=== PATIENT | male | born 1975 | race Caucasian/White ===

== ENCOUNTER → 2022-09-20 13:59 | Outpatient (BNVA) | payer BC, SELFPAY | PROVIDERS: PCP Internal Medicine; Referring Provider Internal Medicine; Visit Provider Physician Assistant Surgical | DX: E66.9 Obesity, unspecified (principal) ==

== ENCOUNTER → 2022-10-17 13:43 | Outpatient (BNVA) | payer BC, SELFPAY | PROVIDERS: PCP Internal Medicine; Visit Provider Dietitian, Registered | DX: E66.9 Obesity, unspecified (principal); Z68.35 Body mass index [BMI] 35.0-35.9, adult | CPT/HCPCS: 97802 ==

== ENCOUNTER 2023-04-10 11:06 | Outpatient (AMB) | payer BC, SELFPAY ==
--- NOTE | 2023-04-10 11:16 | MHC.AMNUTRGE ---
Intake VS Expanded 04/10/23 13:14 Height 5 ft 10 in Weight 231 lb BMI 33.1 Body Fat 70.8 Body Fat Percentage 30.5 Muscle Mass 153 Visceral Mass 15 Water Mass 113.6 BMR 2,173 Intake Visit Reasons: (OV) F/U [facility] Allergies No Known Allergies Allergy (Verified 09/20/22 14:28) HPI Nutrition Presentation Details Medical weight loss start date - 09/20/22 New patient weight 262 lb Last weight 248 lb current weight 232# Pts Goal is 220# Returns to the [facility] program after a long break. Pt states was told [facility] program could be as long as he wanted, just have to pay copays .? Reason for consult elevated BMI Diet Assmnt Details Breakfast: 2 whole eggs and 1 egg white, 1/4 avocado, slice of whole wheat bread Lunch usually a protein shake; using Premier shakes or Pure protein. Dinner : Stopped Measuring portions was having 4-6 oz of protein and vegetable. He recognizes it was beneficial to use of food scale and plans to resume now Patient shares he is interested in learning more about a Mediterranean diet. Likes the idea of eating whole foods and only using the shakes when in a pinch Exercise: walks 3 miles daily on the treadmill Had a severe back injury several months ago but he reports with the weight lost in our program on this is no longer an issue Had some lab work done recently. reports his cholesterol has decreased sig and is no longer prediabetic. Pt reports had protein in urine - kidney function tests were normal . He started B12 and vitaminD. has also had several changes in blood pressure medications. States his doc is suspicious of liddles syndrome Dietary counseling reduction Diagnosis Nutrition problem #1 overweight/obesity As related to (etiology) #1 excess energy intake and physical inactivity As evidenced by (sign/symptom) #1 high BMI Monitoring/Goals Nutrition problem monitoring total energy intake, level of knowledge/skill, total PRO intake, total CHO intake, weight and oral fluids Outcome progress progressing Learning/Education Readiness to learn excellent Stages of change action Educational materials provided Yes Most Recent Diabetes Results: No Data to Display PFSH Surgical History (Updated 09/20/22 @ 14:29 by Brandie Trujillo CMA) Hx of colonoscopy Hx of hernia repair Family History (Updated 09/20/22 @ 14:32 by Brandie Trujillo CMA) Mother Hypertension Son Hypertension Daughter Fatty liver Heart problem Social History (Updated 09/20/22 @ 14:29 by Brandie Trujillo CMA) Alcohol intake: current Alcohol intake frequency: holidays/special occasions only Patient Tobacco Use Status: Never used Tobacco Assessment & Plan Assessment & Plan (1) Obesity: Code(s): E66.9 - Obesity, unspecified Patient Instructions: Patient may continue nutrition appointments in our program as long as we are able. We discussed all meals should include protein and lots of vegetable. Overall is doing well. Reviewed purple food list. Patient to follow-up 05/17 at 10:30 with me in office Coding Level of Care Code Nutr Indiv Subseq ([id number]) Diagnoses Obesity E66.9 Time Spent (min) 30
[2023-04-10 13:14] VITALS: BMI 33.1
== END 2023-04-10 12:23 | disposition home or self-care (01) ==
PROVIDERS: PCP Internal Medicine; Visit Provider Dietitian, Registered
DX: E66.9 Obesity, unspecified (principal)

== ENCOUNTER → 2023-04-10 11:06 | Outpatient (BNVA) | payer BC, SELFPAY | PROVIDERS: PCP Internal Medicine; Visit Provider Dietitian, Registered | DX: E66.9 Obesity, unspecified (principal); Z68.33 Body mass index [BMI] 33.0-33.9, adult; Z71.3 Dietary counseling and surveillance | CPT/HCPCS: 97803 ==

== ENCOUNTER → 2023-05-17 10:06 | Outpatient (BNVA) | payer BC, SELFPAY | PROVIDERS: PCP Internal Medicine; Visit Provider Dietitian, Registered | DX: E66.9 Obesity, unspecified (principal); Z68.33 Body mass index [BMI] 33.0-33.9, adult; Z71.3 Dietary counseling and surveillance | CPT/HCPCS: 97803 ==

== ENCOUNTER → 2023-07-17 14:35 | Outpatient (BNVA) | payer BC, SELFPAY | PROVIDERS: PCP Internal Medicine; Visit Provider Dietitian, Registered | DX: E66.09 Other obesity due to excess calories (principal); Z68.32 Body mass index [BMI] 32.0-32.9, adult; Z71.3 Dietary counseling and surveillance | CPT/HCPCS: 97803 ==

== ENCOUNTER 2023-08-14 15:36 | Outpatient (AMB) | payer BC, SELFPAY ==
--- NOTE | 2023-08-14 16:09 | MHC.AMNUTRGE ---
Intake VS Expanded 08/14/23 16:13 Height 5 ft 10 in Weight 222 lb BMI 31.9 Body Fat % 28.1 Body Fat Mass 62.6 Fat Free Mass 160 Visceral Fat Rating 14 Body Water % 51.0 Body Water Mass 113.6 Muscle Mass/Score 152.2 Basal Metabolic Rate/Score 2,146 Intake Visit Reasons: (OV) F/U [facility] Allergies No Known Allergies Allergy (Verified 09/20/22 14:28) HPI Nutrition Presentation Details Medical weight loss start date - 09/20/22 New patient weight 262 lb weight in may# current weight 222# Pts Goal is 220# Reason for consult elevated BMI Diet Assmnt Details pre workout 30g protein shake Breakfast: 2 whole eggs and 1 egg white, 1/4 avocado, sourdough bread, homemade Lunch usually a protein shake; using Premier shakes or Pure protein. Dinner : 4-6 oz of protein and vegetable Protein greens smoothie 120 calories , 20g protein = 120g protein Exercise: 4am weight training 45 minutes 3 exercises per body part and usually 2 body parts (bi's and tri's or chest and shoulder) treadmill at night 40 minutes weekends 15,000 steps Shares his doc has been suspicious of Liddles syndrome, has begun weaning him off blood pressure meds and started him on a new medication which appears to be working. his MD was previously concerned about protein in the urine but he had not told him to restrict protein at all or give pt any recommendations. his vp digital marketing social media and crm approved the use of creatine monohydrate He is interested in functional medicine Dietary counseling reduction Diagnosis Nutrition problem #1 overweight/obesity Monitoring/Goals Nutrition problem monitoring total energy intake, level of knowledge/skill, total PRO intake, total CHO intake, weight and oral fluids Outcome progress progressing Learning/Education Readiness to learn excellent Stages of change action Educational materials provided Yes Most Recent Diabetes Results: No Data to Display PFSH Surgical History (Updated 09/20/22 @ 14:29 by Brandie Trujillo CMA) Hx of hernia repair Hx of colonoscopy Family History (Updated 09/20/22 @ 14:32 by Brandie Trujillo CMA) Mother Hypertension Son Hypertension Daughter Fatty liver Heart problem Social History (Updated 09/20/22 @ 14:29 by Brandie Trujillo CMA) Alcohol intake: current Alcohol intake frequency: holidays/special occasions only Patient Tobacco Use Status: Never used Tobacco Assessment & Plan Assessment & Plan (1) Obesity (BMI 30-39.9): Code(s): E66.9 - Obesity, unspecified Plan continue all habits developed so far, continue to hit protein goals, nutrition follow up in a month Coding Level of Care Code Nutr Indiv Subseq ([id number]) Diagnoses Obesity (BMI 30-39.9) E66.9 Time Spent (min) 30
[2023-08-14 16:13] VITALS: BMI 31.9
== END 2023-08-14 16:45 | disposition home or self-care (01) ==
PROVIDERS: PCP Internal Medicine; Visit Provider Dietitian, Registered
DX: E66.9 Obesity, unspecified (principal)

== ENCOUNTER → 2023-08-14 15:36 | Outpatient (BNVA) | payer BC, SELFPAY | PROVIDERS: PCP Internal Medicine; Visit Provider Dietitian, Registered | DX: E66.9 Obesity, unspecified (principal); Z68.31 Body mass index [BMI] 31.0-31.9, adult; Z71.3 Dietary counseling and surveillance | CPT/HCPCS: 97803 ==

== ENCOUNTER 2023-10-05 10:36 | Outpatient (AMB) | payer BC, SELFPAY ==
--- NOTE | 2023-10-05 10:53 | A.OFFVIS_ITS ---
Intake VS Expanded 10/05/23 10:57 10/05/23 11:05 Height 5 ft 10 in 5 ft 10 in Weight 225 lb 225 lb BMI 32.3 32.3 Body Fat % 28.0 Body Fat Mass 63.0 Fat Free Mass 162. Visceral Fat Rating 14 Body Water % 51.4 Body Water Mass 115.4 Muscle Mass/Score 154.4 Basal Metabolic Rate/Score 2,177 Intake Visit Reasons: (OV) F/U [facility] Allergies No Known Allergies Allergy (Verified 09/20/22 14:28) HPI Nutrition Presentation Details Medical weight loss start date - 09/20/22 New patient weight 262 lb weight in may# current weight 225 Reason for consult elevated BMI Diet Assmnt Details 4:40am creatine and electrolytes pre workout 30g protein shake Breakfast: 3 whole eggs and 1 egg white, 1/4 avocado, sourdough bread, homemade sunflower seends, spinach, zucchini, 3 TBSP hummus, = 600, 34g carb, Lunch usually a protein shake; using Premier shakes or Pure protein. Dinner : 4-6 oz of protein and vegetable Tracks daily , very regimented baout it. typically at 1800kcal, 120g protein Exercise: 4am weight training 45 minutes 3 exerc ises per body part and usually 2 body parts (bi's and tri's or chest and shoulder) treadmill at night 40 minutes weekends 15,000 steps Shares his doc has been suspicious of Liddles syndrome, has begun weaning him off blood pressure meds and started him on a new medication which appears to be working. his MD was previously concerned about protein in the urine but he had not told him to restrict protein at all or give pt any recommendations. his biometrics analyst approved the use of creatine monohydrate He is interested in functional medicine Dietary counseling reduction Diagnosis Nutrition problem #1 overweight/obesity As related to (etiology) #1 excess energy intake and physical inactivity As evidenced by (sign/symptom) #1 high BMI (improving ) Monitoring/Goals Nutrition problem monitoring total energy intake, level of knowledge/skill, total PRO intake, total CHO intake, weight and oral fluids Outcome progress progressing Learning/Education Readiness to learn excellent Stages of change action Educational materials provided Yes Most Recent Diabetes Results: No Data to Display [facility] Surgical History (Updated 09/20/22 @ 14:29 by Brandie Trujillo CMA) Hx of hernia repair Hx of colonoscopy Family History (Updated 09/20/22 @ 14:32 by Brandie Trujillo CMA) Mother Hypertension Son Hypertension Daughter Fatty liver Heart problem Social History (Updated 09/20/22 @ 14:29 by Brandie Trujillo CMA) Alcohol intake: current Alcohol intake frequency: holidays/special occasions only Patient Tobacco Use Status: Never used Tobacco Assessment & Plan Assessment & Plan (1) Obesity (BMI 30-39.9): Code(s): E66.9 - Obesity, unspecified Plan briefly discussed IF as he is very interested in this. talked about how to get enough protein with IF. Continue to have balanced meals. f/u 11/05 at 3pm Coding Level of Care Code Nutr Indiv Subseq ([id number]) Diagnoses Obesity (BMI 30-39.9) E66.9 Time Spent (min) 60
[2023-10-05 10:57] VITALS: BMI 32.3
[2023-10-05 11:05] VITALS: BMI 32.3
== END 2023-10-05 11:47 | disposition home or self-care (01) ==
PROVIDERS: PCP Internal Medicine; Visit Provider Dietitian, Registered
DX: E66.9 Obesity, unspecified (principal)

== ENCOUNTER → 2023-10-05 10:36 | Outpatient (BNVA) | payer BC, SELFPAY | PROVIDERS: PCP Internal Medicine; Visit Provider Dietitian, Registered | DX: E66.9 Obesity, unspecified (principal); Z68.32 Body mass index [BMI] 32.0-32.9, adult; Z71.3 Dietary counseling and surveillance | CPT/HCPCS: 97803 ==

== ENCOUNTER 2023-11-30 08:38 | Outpatient (AMB) | payer BC, SELFPAY ==
[2023-11-30 09:05] VITALS: BMI 32.7
--- NOTE | 2023-11-30 09:05 | MHC.AMNUTRGE ---
Intake VS Expanded 11/30/23 09:05 Height 5 ft 10 in Weight 228 lb BMI 32.7 Body Fat % 29.0 Body Fat Mass 66.2 Visceral Fat Rating 15 Body Water Mass 115.4 Muscle Mass/Score 154.4 Basal Metabolic Rate/Score 2,182 Intake Visit Reasons: (OV) F/U [facility] Allergies No Known Allergies Allergy (Verified 09/20/22 14:28) HPI Nutrition Presentation Details Medical weight loss start date - 09/20/22 New patient weight 262 lb weight in may# current weight 228 Reason for consult elevated BMI Diet Assmnt Details Was recently sick with a dental infection. blood pressure was high and put on bed rest for a few weeks. - explains weight gain which may be just fluid retention. he is motivated to get back to a workout routine and healthy eating routine. he wants to increase vegetable and fruit intake. 4:40am creatine and electrolytes pre workout 30g protein shake . Without the proein shake, he notices decreased workout performance and struggles about 40 min into the workout Breakfast: 3 whole eggs and 1 egg white, 1/4 avocado, sourdough bread, homemade sunflower seends, spinach, zucchini, 3 TBSP hummus, = 600, 34g carb, Lunch usually a protein shake; using Premier shakes or Pure protein. Dinner : 4-6 oz of protein and vegetable Exercise: 4am weight training 45 minutes 3 exercises per body part and usually 2 body parts (bi's and tri's or chest and shoulder) treadmill at night 40 minutes weekends 15,000 steps Shares his doc has been suspicious of Liddles syndrome, has begun weaning him off blood pressure meds and started him on a new medication which appears to be working. his MD was previously concerned about protein in the urine but he had not told him to restrict protein at all or give pt any recommendations. his technical education teacher approved the use of creatine monohydrate He is interested in functional medicine Dietary counseling reduction Diagnosis Nutrition problem #1 overweight/obesity As related to (etiology) #1 excess energy intake and physical inactivity As evidenced by (sign/symptom) #1 high BMI (improving ) Monitoring/Goals Nutrition problem monitoring total energy intake, level of knowledge/skill, total PRO intake, total CHO intake, weight and oral fluids Outcome progress progressing Learning/Education Readiness to learn excellent Stages of change action Educational materials provided Yes Most Recent Diabetes Results: No Data to Display PFSH Surgical History (Updated 09/20/22 @ 14:29 by Brandie Trujillo CMA) Hx of hernia repair Hx of colonoscopy Family History (Updated 09/20/22 @ 14:32 by Brandie Trujillo CMA) Mother Hypertension Son Hypertension Daughter Fatty liver Heart problem Social History (Updated 09/20/22 @ 14:29 by Brandie Trujillo CMA) Alcohol intake: current Alcohol intake frequency: holidays/special occasions only Patient Tobacco Use Status: Never used Tobacco Assessment & Plan Assessment & Plan (1) Obesity (BMI 30-39.9): Code(s): E66.9 - Obesity, unspecified Plan we discussed continuing to hit protein goal around 120g per day. increase fruit/veg intake. add protein shake before workouts to increase performance. Will be ending his time in the [facility] program Coding Level of Care Code Nutr Indiv Subseq ([id number]) Diagnoses Obesity (BMI 30-39.9) E66.9 Time Spent (min) 30
== END 2023-11-30 09:57 | disposition home or self-care (01) ==
PROVIDERS: PCP Internal Medicine; Visit Provider Dietitian, Registered
DX: E66.9 Obesity, unspecified (principal)

== ENCOUNTER → 2023-11-30 08:38 | Outpatient (BNVA) | payer BC, SELFPAY | PROVIDERS: PCP Internal Medicine; Visit Provider Dietitian, Registered | DX: E66.9 Obesity, unspecified (principal); Z68.32 Body mass index [BMI] 32.0-32.9, adult; Z71.3 Dietary counseling and surveillance | CPT/HCPCS: 97803 ==